=== PATIENT | female | born 1990 | race Caucasian/White ===

== ENCOUNTER 2019-12-03 06:29 | Emergency (ER) | payer OTHER ==
[~2019-12-03] VITALS: Ht 167.6 cm; Wt 52.3 kg
[2019-12-03 06:43] VITALS: TEMP 98.7
[2019-12-03 09:11] VITALS: BP 109/66; PULSE 79
== END 2019-12-03 09:10 | disposition home or self-care (01) ==
LOC: COL.ER 06:29
DX: R51 Headache (principal)
CPT/HCPCS: J1100; J1200; J1885; J2765; J7030